=== PATIENT | female | born 1985 | race African-American/Black ===

== ENCOUNTER 2019-05-26 10:32 | Day surgery (SDC) | payer OTHER ==
[2019-05-26 11:32] VITALS: BMI 42.5
[2019-05-26] MEDS ORDERED: hydrALAZINE 20 MG/ML VIAL SLOW IVP PRN (11:55)
--- NOTE | 2019-05-26 11:56 | PDOC.EVN ---
Event Note - Event Note Event Note: H&P dictated Patient seen at 1150
--- NOTE | 2019-05-26 12:20 | HP ---
TIME: The time of evaluation was roughly 1150 hours. LOCATION: Triage bed A. REASON FOR EVALUATION: Suspected contractions in a twin at 31 weeks. This is a patient of Dr. Holden. HISTORY OF PRESENT ILLNESS: This is a 34-year-old , G2, P1, with known dichorionic diamniotic twins, who presents with possible contractions. She denies leakage of fluid or vaginal bleeding and she has not had recent intercourse. There is no other issues up to this point. She states the contractions are on and off and started earlier during the day. REVIEW OF SYSTEMS: Complete review of systems performed and otherwise negative as per HPI. PAST MEDICAL HISTORY: Noncontributory. PAST OBSTETRICAL HISTORY: Significant for a done for failed induction of labor. ALLERGIES: SHE HAS NO KNOWN DRUG ALLERGIES. GYNECOLOGICAL HISTORY: Otherwise negative. PHYSICAL EXAMINATION: VITAL SIGNS: She is afebrile. Blood pressure is 118/74, pulse is variable from the 90s to the low 110s. GENERAL: Clinically, she is in no acute distress and does not appear to be actively laboring. ABDOMEN: Gravid and compatible with twin gestation. : On perineal inspection, no gross evidence of vaginal bleeding or rupture. Cervical exam is deferred. Pending evaluation/laboratory data. INTERVENTIONS ORDERED: We have ordered an FFN per protocol. We have also ordered a cervical length by transvaginal ultrasound. monitor, heart tones x2 are reactive for EGA without pathological decels. No contractions on tocodynamometer, although there is some irritability. ASSESSMENT: This is a G2, P1, at 31 weeks and 5 days, known twin gestation with threatened labor/contractions and os. PLAN: 1. Per protocol, we have ordered an FFN and cervical length. Per true protocol, cervical length was done first, and then followed up by an FFN. As we are at senses capacity, to prevent delay in further assessment, I have ordered both tests together. 2. The patient seen at bedside. 3. I do not suspect true labor at this time, but we will follow protocol per ACOG. Job ID: [id number]
[2019-05-26 12:38] LABS: FFN Internal QC Analyzer PASS (PASS); FFN Internal QC Cassette PASS (PASS); Fetal Fibronectin Negative (Negative)
--- NOTE | 2019-05-26 12:43 | ULT ---
LIMITED OB ULTRASOUND: 05/26/19 HISTORY: 31 week twins, evaluate cervical length. FINDINGS/IMPRESSION: A live intrauterine twin is seen with heart rates of 153 beats per minute (fetus A) a nd 140 beats per minute (fetus B). Fetus A is to the maternal right and fetus B is to the maternal le ft. The cervical length measures 3.8 cm. POS: [facility]
--- NOTE | 2019-05-26 12:54 | PDOC.EVN ---
Event Note - Event Note Event Note: FFN negative Awaiting CX length
--- NOTE | 2019-05-26 13:08 | PDOC.EVN ---
Event Note - Event Note Event Note: CX length 3.0 OK for release
== END 2019-05-26 13:30 | disposition home or self-care (01) ==
LOC: L&D/OP 10:32
PROVIDERS: ATTEND Student in an Organized Health Care Education/Training Program
DX: O47.03 False labor before 37 completed weeks of gestation, third trimester (principal); O30.043 Twin pregnancy, dichorionic/diamniotic, third trimester; Z79.899 Other long term (current) drug therapy; Z3A.31 31 weeks gestation of pregnancy
CPT/HCPCS: 76815; 82731; 99283

== ENCOUNTER 2019-06-23 09:37 | Inpatient (IN) | payer OTHER ==
[2019-06-23 10:05] VITALS: BMI 45.3
[2019-06-23] MEDS ORDERED: hydrALAZINE 20 MG/ML VIAL SLOW IVP PRN ×2 (10:58→13:12)
[2019-06-23 11:15] LABS: #Lymphocytes 1.7 thou/uL (1.20-3.40); #Monocytes 0.6 thou/uL (0.11-0.59); #Neutrophils 4.7 thou/uL (1.40-6.50); %Basophils 0.4 % (0.0-1.0); %Eosinophils 0.6 % (0.0-10.0); %Lymphocytes 24.5 % (21.0-51.0); %Monocytes 7.9 % (0.0-10.0); %Neutrophils 66.6 % (42.0-75.0); Hemoglobin 10.1 g/dL (12.0-16.0); Mean Corpuscular HGB CONC 33.5 g/dL (32.0-36.0); Mean Corpuscular Hemoglobin 25.4 pg (27.0-31.0); Mean Corpuscular Volume 75.6 fL (78.0-98.0); Mean Platelet Volume 8.2 fL (7.4-10.4); Platelet Count 188 thou/uL (130-400); RBC Distribution Width 13.7 % (11.5-14.5); Red Blood Cell (RBC) Count 3.98 mill/uL (4.20-5.40)
[2019-06-23 11:34] LABS: ALT (SGPT) 10 U/L (8-55); AST (SGOT) 18 U/L (5-34); Albumin 3.4 g/dL (3.5-5.0); Alkaline Phosphatase 163 U/L (40-150); Anion Gap 12 mmol/L (10-20); BUN (Urea Nitrogen) 5 mg/dL (7.0-18.7); Bilirubin, Total 0.3 mg/dL (0.2-1.2); Calc. Creatinine Clearance 228 mL/min (70-130); Carbon Dioxide 22 mmol/L (22-29); Chloride 105 mmol/L (98-107); Estimated GFR-MDRD Greater than 90; Globulin 3.2 g/dL (2.4-3.5); Glucose 69 mg/dL (70-105); Protein, Total 6.6 g/dL (6.0-8.3); Sodium 135 mmol/L (136-145)
[2019-06-23 12:02] LABS: Creatinine, Urine 174.92 mg/dL (47-110)
[2019-06-23] MEDS ORDERED: Acetaminophen 500 MG TAB PO PRN (13:12)
[2019-06-23] MEDS ORDERED: Butorphanol Tartrate 1 MG/ML VIAL SLOW IVP PRN (13:12)
[2019-06-23] MEDS ORDERED: Ondansetron PF 4 MG/2 ML Vial IVP PRN (13:12)
[2019-06-23] MEDS ORDERED: Promethazine HCl 25 MG/ML VIAL IM PRN (13:12)
--- NOTE | 2019-06-23 13:20 | PDOC.LDHP ---
Labor and Delivery H&P Chief complaint: other (Preeclampsia workup) HPI: 34 y/o at 35w5d with twins sent from Dr. Holden's office for PIH workup. Denies MATUTE, vision changes, RUQ pain or other concerns. +FM x 2. ROS neg for HEENT, CV, pulm, GI, , neuro, psych, skin, musculoskeletal, or constitutional symptoms other than mentioned above. OB History Details: 1 prior LTCS at term Current complications: di/di twins Past Medical History: None Current medications: pre- vitamins Previous surgical history: low tranverse CS (x1 for failed induction) Allergies/Adverse Reactions: Allergies Allergy/AdvReac Type Severity Reaction Status Date / Time No Known Allergies Allergy Verified 06/23/19 12:11 Social history: none - Physical Exam Vital signs reviewed and normal: yes General: NAD, resting Lungs: nonlabored breathing Abdomen: gravid Extremeties: no edema FHT: category 1 (130s/140s, mod variability, + accels, no decels) [place] contractions every: irregular - Assessment 34 y/o at 35w5d with preeclampsia based on blood pressures and protein creatinine ratio of 1.12. - Plan Plan: admit to L&D -: [place] for lung maturity. Continue to monitor closely. Discussed with Dr. Holden.
[2019-06-23] MEDS: Betamet Acet/Betamet Na Ph 30 MG/5 ML VIAL IM SCH (13:54)
[2019-06-23 16:06] LABS: Hemoglobin 9.8 g/dL (12.0-16.0); Mean Corpuscular Hemoglobin 24.9 pg (27.0-31.0); Mean Corpuscular Volume 75.4 fL (78.0-98.0); Mean Platelet Volume 8.8 fL (7.4-10.4); Platelet Count 208 thou/uL (130-400); RBC Distribution Width 13.7 % (11.5-14.5); Red Blood Cell (RBC) Count 3.92 mill/uL (4.20-5.40); White Blood Cell (WBC) Count 6.3 thou/uL (4.8-10.8)
[2019-06-23 16:46] LABS: HBSAg Index 0.19 S/CO (0-0.99); Hep B Surf Ag Non-Reactive S/CO (NonReactive); Syphilis Antibody Nonreactive (Nonreactive); Syphilis Antibody Index 0.04 S/CO (<1.00 Non-Reactive)
[2019-06-24] MEDS: Betamet Acet/Betamet Na Ph 30 MG/5 ML VIAL IM SCH (13:55)
--- NOTE | 2019-06-24 14:29 | PDOC.LDPN ---
Labor & Delivery Progress Note - Subjective Subjective: comfortable - Objective Vital signs reviewed and normal: yes Abnormal vital signs: occ mild range BP 140s systolic General: NAD Uterine fundus: non tender FHT: category 1 (x2) [place] contractions every: none -: 34yo at 35w6d by LMP with sapphire twins and preeclampsia without severe features Labs normal, no severe range BP or sx. s/p BMZ x 2 Plan RCS tomorrow. DC home until then with PIH warnings. FHR reassuring x 2
== END 2019-06-24 14:00 | disposition home or self-care (01) | DRG 833 ==
LOC: L&D/OP 09:37 → L&D 13:45
PROVIDERS: ADMIT Student in an Organized Health Care Education/Training Program; ATTEND Student in an Organized Health Care Education/Training Program
DX: O14.93 Unspecified pre-eclampsia, third trimester (principal); O30.043 Twin pregnancy, dichorionic/diamniotic, third trimester; Z3A.35 35 weeks gestation of pregnancy; O34.211 Maternal care for low transverse scar from previous cesarean delivery
CPT/HCPCS: 36415; 80053; 82570; 84156; 85025; 86780; 86850; 86900; 86901; 87340; 99285; J0702

== ENCOUNTER 2019-06-25 10:08 | Inpatient (IN) | payer OTHER ==
[2019-06-25] MEDS ORDERED: Lactated Ringer's 1,000 ML IV SCH (11:04)
[2019-06-25] MEDS ORDERED: Promethazine HCl 25 MG/ML VIAL IM PRN ×3 (11:04→14:54)
[2019-06-25] MEDS ORDERED: Ondansetron PF 4 MG/2 ML Vial IVP PRN ×3 (11:04→14:54)
[2019-06-25] MEDS ORDERED: hydrALAZINE 20 MG/ML VIAL SLOW IVP PRN ×2 (11:04→14:54)
[2019-06-25] MEDS ORDERED: Bicitra 30 ML UDCUP PO SCH (11:04)
[2019-06-25 11:16] VITALS: BMI 44.6
[2019-06-25] MEDS ORDERED: CEFAZOLIN 2 GM in Premix Bag 1 BAG IVPB SCH (11:30)
[2019-06-25 11:41] LABS: Hemoglobin 10.6 g/dL (12.0-16.0); Mean Corpuscular HGB CONC 31.8 g/dL (32.0-36.0); Mean Corpuscular Hemoglobin 24.4 pg (27.0-31.0); Mean Corpuscular Volume 76.8 fL (78.0-98.0); Platelet Count 233 thou/uL (130-400); Red Blood Cell (RBC) Count 4.33 mill/uL (4.20-5.40); White Blood Cell (WBC) Count 11.9 thou/uL (4.8-10.8)
[2019-06-25] MEDS ORDERED: MORPHINE 5 MG/10 ML PF VIAL ONE (11:55)
[2019-06-25] MEDS ORDERED: Ondansetron PF 4 MG/2 ML Vial ONE (11:55)
[2019-06-25] MEDS ORDERED: Oxytocin 10 UNITS/ML VIAL ONE (11:55)
--- NOTE | 2019-06-25 12:13 | PDOC.LDHP ---
Labor and Delivery H&P Chief complaint: scheduled section HPI: 34yo A2 at 36w0d by LMP here for RCS due to sapphire TIUP and preeclampsia without severe features. No sx PIH. BP nl on unit today, was admitted 2d ago with mild range BP and PCR of 1.12. s/p BMZ x 2 Current gestational age (weeks): 36 Due date: 07/23/19 Dating criteria: last menstrual period Grav: 4 Para: 1 Current complications: preeclampsia without severe features, di/di twins Abnormal US findings: No Past Medical History: obesity Current medications: pre-janine vitamins, iron Previous surgical history: low tranverse CS Allergies/Adverse Reactions: Allergies Allergy/AdvReac Type Severity Reaction Status Date / Time No Known Allergies Allergy Verified 06/25/19 11:10 Social history: none - Physical Exam Vital signs reviewed and normal: yes General: NAD Heart: RRR Lungs: CTAB Abdomen: gravid Extremeties: no edema FHT: category 1 [place] contractions every: none - OB Labs Blood type: O RH: positive Antibody Screen: negative HIV: negative RPR: negative HEPSAg: negative 1 hour GCT: negative GBS: negative Urine drug screen: negative Rubella: immune - Assessment L&D Assessment: scheduled repeat section - Plan Plan: admit to L&D, to OR for section, informed consent obtained, anesthesia consult for pain management
[2019-06-25 12:17] LABS: HBSAg Index 0.14 S/CO (0-0.99); Hep B Surf Ag Non-Reactive S/CO (NonReactive); Syphilis Antibody Nonreactive (Nonreactive); Syphilis Antibody Index 0.04 S/CO (<1.00 Non-Reactive)
[2019-06-25 12:25] LABS: ALT (SGPT) 12 U/L (8-55); AST (SGOT) 26 U/L (5-34); Albumin 3.9 g/dL (3.5-5.0); Alkaline Phosphatase 184 U/L (40-150); Anion Gap 15 mmol/L (10-20); BUN (Urea Nitrogen) 7 mg/dL (7.0-18.7); Bilirubin, Total 0.3 mg/dL (0.2-1.2); Calc. Creatinine Clearance 222 mL/min (70-130); Calcium 9.2 mg/dL (7.8-10.44); Carbon Dioxide 20 mmol/L (22-29); Chloride 109 mmol/L (98-107); Estimated GFR-MDRD Greater than 90; Globulin 3.3 g/dL (2.4-3.5); Glucose 93 mg/dL (70-105); Potassium 4.2 mmol/L (3.5-5.1); Protein, Total 7.2 g/dL (6.0-8.3); Sodium 140 mmol/L (136-145)
[2019-06-25] MEDS ORDERED: ePHEDrine/0.9% NaCl/PF SYRINGE 50 mg/10 ml ONE (12:37)
[2019-06-25] MEDS ORDERED: Fentanyl 100 MCG/2 ML VIAL ONE (12:41)
[2019-06-25] MEDS ORDERED: PHENYLEPHRINE-NS 100 MCG/ML 10 ML SYRINGE ONE (12:42)
[2019-06-25] MEDS ORDERED: Carboprost 250 MCG/ML AMP ONE (12:53)
--- NOTE | 2019-06-25 13:42 | PDOC.OPDEL ---
OB Operative/Delivery Note Delivery Dr/Surgeon: Adina Assist: Sorin De Santiago PGY3 Pre-Delivery Diagnosis: scheduled section (sterilization, Preeclampsia , twins) Procedure/Post Delivery Dx: repeat low transverse CS (and bilateral salpingectomy) Weeks gestation: 36 Anesthesia: spinal - Findings A Sex: male B Sex: female - Additional Findings/Plan Placenta delivered: spontaneous findings: low transverse hysterotomy without extension, normal uterus, normal tubes, normal ovaries Estimated blood loss: 1000cc Post delivery plan: routine recovery
[2019-06-25] MEDS ORDERED: Naloxone HCl 0.4 mg/ml Vial IV PRN (13:47)
[2019-06-25] MEDS ORDERED: Promethazine HCl 25 MG SUPP PR PRN (13:47)
[2019-06-25] MEDS ORDERED: Naloxone HCl 0.4 mg/ml Vial IVP PRN ×2 (13:47)
[2019-06-25] MEDS ORDERED: Ketorolac Tromethamine 30 MG/ML VIAL IVP PRN (13:47)
[2019-06-25] MEDS ORDERED: Meperidine HCl/PF 25 MG/ML VIAL SLOW IVP PRN (13:47)
[2019-06-25] MEDS ORDERED: Ondansetron HCl/PF 4 MG/2 ML Vial IVP PRN (13:47)
[2019-06-25] MEDS ORDERED: diphenhydrAMINE 50 MG/ML VIAL IVP PRN (13:47)
[2019-06-25] MEDS ORDERED: HYDROmorphone 2 MG/ML VIAL SLOW IVP PRN (13:47)
[2019-06-25] MEDS ORDERED: L&D-Morphine 4 MG/ML VIAL SLOW IVP PRN (13:47)
[2019-06-25] MEDS ORDERED: NS / Oxytocin 40 units/1000ml 1,000 ML ONE (13:51)
[2019-06-25] MEDS ORDERED: Ketorolac Tromethamine 30 MG/ML VIAL ONE (13:56)
[2019-06-25] MEDS ORDERED: Ketorolac Tromethamine 30 MG/ML VIAL IVP SCH (14:00)
[2019-06-25] MEDS ORDERED: Communication Order-Pharmacy FS SCH (14:00)
[2019-06-25] MEDS ORDERED: Meperidine HCl/PF 25 MG/ML VIAL ONE (14:30)
[2019-06-25] MEDS ORDERED: SODIUM CHLORIDE IV SCH (14:45)
[2019-06-25] MEDS ORDERED: OXYTOCIN IV SCH (14:45)
[2019-06-25] MEDS ORDERED: Bisacodyl 10 MG SUPP PR PRN (14:54)
[2019-06-25] MEDS ORDERED: Methylergonovine 0.2 MG/ML VIAL IM PRN (14:54)
[2019-06-25] MEDS ORDERED: Lanolin Ointment 7 GM TUBE TOP PRN (14:54)
[2019-06-25] MEDS ORDERED: Acetaminophen 325 MG TAB PO PRN (14:54)
[2019-06-25] MEDS ORDERED: diphenhydrAMINE 25 MG CAP PO PRN (14:54)
[2019-06-25] MEDS ORDERED: Misoprostol 200 MCG TAB PR PRN (14:54)
[2019-06-25] MEDS ORDERED: Adacel (T-DAP) 0.5 ML SYRINGE IM ONE (14:54)
[2019-06-25] MEDS ORDERED: Zolpidem Tartrate 5 MG TAB PO PRN (14:54)
[2019-06-25] MEDS: Ferrous Sulfate 325 MG TAB PO SCH (17:29)
[2019-06-25] MEDS: Docusate Calcium (SURFAK) 240 MG CAP PO SCH (20:57)
[2019-06-25] MEDS: Lactated Ringer's 1,000 ML IV SCH (22:22)
[2019-06-26] MEDS ORDERED: HYDROcodone/Acetaminophen 5/325 mg Tablet PO PRN (02:00)
[2019-06-26 06:05] LABS: Hemoglobin 7.5 g/dL (12.0-16.0); Mean Corpuscular HGB CONC 31.9 g/dL (32.0-36.0); Mean Corpuscular Hemoglobin 24.5 pg (27.0-31.0); Mean Corpuscular Volume 76.8 fL (78.0-98.0); Mean Platelet Volume 8.4 fL (7.4-10.4); Platelet Count 165 thou/uL (130-400); RBC Distribution Width 14.1 % (11.5-14.5); Red Blood Cell (RBC) Count 3.08 mill/uL (4.20-5.40); White Blood Cell (WBC) Count 11.2 thou/uL (4.8-10.8)
[2019-06-26] MEDS: Prenatal Vitamin 1 TAB PO SCH (10:27)
[2019-06-26] MEDS: Ferrous Sulfate 325 MG TAB PO SCH ×2 (10:28→21:00)
[2019-06-26] MEDS: Docusate Calcium (SURFAK) 240 MG CAP PO SCH ×2 (10:28→19:56)
[2019-06-26] MEDS: Lactated Ringer's 1,000 ML IV SCH ×2 (10:41→12:26)
--- NOTE | 2019-06-26 13:33 | PDOC.PP ---
Post Progress Note Post Day #: 1 PO intake tolerated: yes Flatus: yes Ambulation: yes Vital Signs (12 hours) Temp Pulse Resp BP Pulse Ox 06/26/19 12:28 98.2 F 77 12 119/72 100 06/26/19 07:58 97.9 F 77 14 120/81 99 06/26/19 02:30 97.6 F 97 20 135/84 Weight Weight 294 lb - Physical Examination General: NAD Respiratory: non-labored breathing Abdominal: no distention, appropriately TTP Skin: CS incision dry & intact Neurological: no gross focal deficits Psychiatric: normal affect Result Diagrams: 06/26/19 05:17 06/25/19 11:18 Additional Labs: Post Labs Blood Type O POSITIVE 06/25/19 11:18 Hep Bs Antigen Non-Reactive S/CO (NonReactive) 06/25/19 11:18 - Assessment/Plan POD1 s/p RCS at bilateral salpingectomy VSSAF Hgb 10.6-->ebl 1L-->7.5, no s/sx anemia, acute on chronic iron def anemia, cont iron supp Met appropriate milestones. Rh pos RImm , infants in NICU Cont postop care.
--- NOTE | 2019-06-26 13:43 | OP ---
DATE OF PROCEDURE: 06/25/2019 I was present and scrubbed to assist the repeat for Barb Kiran with Dr. Valeria Holden. Please see her note for full details. Job ID: [id number]
[2019-06-26] MEDS: Simethicone Chewable 80 MG TAB PO PRN (19:56)
[2019-06-26] MEDS: HYDROcodone/Acetaminophen 5/325 mg Tablet PO PRN (19:57)
--- NOTE | 2019-06-26 21:22 | OP ---
DATE OF PROCEDURE: 06/25/2019 PREOPERATIVE DIAGNOSES: 1. Intrauterine at 36 weeks 0 days. 2. Dichorionic-diamniotic twin intrauterine . 3. Preeclampsia without severe features. 4. Prior section x1, declines trial of labor. 5. Desires sterilization. 6. Family history of breast cancer. POSTOPERATIVE DIAGNOSES: 1. Intrauterine at 36 weeks 0 days. 2. Dichorionic-diamniotic twin intrauterine . 3. Preeclampsia without severe features. 4. Prior section x1, declines trial of labor. 5. Desires sterilization. 6. Family history of breast cancer. PROCEDURE PERFORMED: Repeat low transverse section via Pfannenstiel skin incision and bilateral salpingectomy. ANESTHESIA: Spinal. BUS DRIVER SURGEON: Velia De Santiago MD and Dr. Rowell, PGY-3. ESTIMATED BLOOD LOSS: 1 L. COMPLICATIONS: None. DRAINS: Davila catheter. PATHOLOGY: Placenta. FINDINGS: Baby A male, clear amniotic fluid, cephalic presentation. Apgars of 7 and 8, weighing 5 pounds 8 ounces. Baby B female, cephalic presentation, clear amniotic fluid, weighing 4 pounds 8 ounces. Apgars of 6, 7, and 9. Hysterotomy without extension. Normal uterus, ovaries, and tubes bilaterally. Excellent hemostasis. DESCRIPTION OF PROCEDURE: The patient was taken to operating room, where spinal anesthesia was obtained without difficulty. The patient was prepped and draped in a sterile fashion in the dorsal supine position with a leftward tilt. After ensuring adequacy of anesthesia, a Pfannenstiel skin incision was made and carried down to the underlying subcutaneous tissue with the Bovie. The fascia was nicked in the midline with the Bovie and carried laterally with the Alamo scissors. The superior aspect of the fascia was tented with two Bar's and dissected off the rectus with the [place] scissors. The inferior aspect of the fascia was tented with two Bar's and dissected off the rectus down to the pubic symphysis. The rectus was bluntly divided in the midline. The peritoneum was bluntly entered into and manually retracted. The Holden O retractor was placed, and the lower uterine segment was incised in a transverse fashion and extended with a Edward maneuver. The baby A's head was brought to the hysterotomy, AROM performed, and baby A was delivered with fundal pressure. The baby's cord was clamped, and baby handed to awaiting Neonatology team. Baby B was then grasped and AROM performed. The baby B was delivered with fundal pressure also in cephalic presentation, and the cord was clamped and handed to awaiting Neonatology team. Cord blood was obtained of both placentas and the placenta was allowed to spontaneously deliver. The uterus was exteriorized, cleared of all clots and debris, and the hysterotomy was repaired with a #1 Monocryl in a running locking fashion with excellent hemostasis. A moist lap sponge was placed over the hysterotomy. The right fallopian tube was grasped with a Bethel clamp and windows were made around the spiral arteries in the mesosalpinx. The arteries were then clamped as well as the medial portion of the fallopian tube at the uterine cornua. The fallopian tube was incised with the Metzenbaum's and handed for pathology. These spiral arteries were then ligated with 0 chromic and hemostasis was noted to be excellent. Same procedure was performed on the contralateral side. The hysterotomy was then examined, noted to be hemostatic. The uterus was placed back into the abdomen. The fallopian tube sites were noted to be hemostatic as well. Irrigation was performed of the pelvis. Holden O retractor was removed. The rectus muscles were examined and noted to be hemostatic. The fascia was reapproximated with 0 PDS x2 sutures with excellent reapproximation. The subcutaneous tissue was irrigated and cauterized of any bleeders and reapproximated with a 2-0 plain gut in a running fashion. The skin was closed with a 4-0 Monocryl in a subcuticular fashion. Dermabond was applied as well as a pressure dressing. The patient tolerated the procedure well. Sponge, lap, and needle counts were correct x2. The patient was taken to recovery room in stable condition. The patient received Ancef 2 g prior to the procedure. Job ID: [id number]
[2019-06-26] MEDS: Ibuprofen 800 MG TAB PO SCH (21:41)
[2019-06-27] MEDS: HYDROcodone/Acetaminophen 5/325 mg Tablet PO PRN ×2 (00:49→06:35)
[2019-06-27] MEDS: Lactated Ringer's 1,000 ML IV SCH ×3 (01:48→11:21)
[2019-06-27] MEDS: Ibuprofen 800 MG TAB PO SCH ×4 (06:26→21:51)
[2019-06-27] MEDS ORDERED: Milk Of Magnesia 30 ML UDCUP PO PRN (07:30)
--- NOTE | 2019-06-27 08:37 | PRG ---
DATE OF SERVICE: 06/27/2019 SUBJECTIVE: The patient is a 34-year-old female, postop day 2 status post a repeat for a twin gestation. The patient reports this morning that she is having trouble with pain control given the medication she is on currently. Reports that she has been taking it regularly. She also reports that she has been having constipation, has not had a bowel movement since admission and is concerned for that. She does ambulate to and from the NICU, and denies any concerns or complaints with ambulation. She is tolerating p.o., voiding on her own, and having decreased lochia. OBJECTIVE: VITAL SIGNS: This morning, blood pressure is 148/91, temperature is 98.0, pulse is 97, respiratory rate is 16. GENERAL: She appears to be in no acute distress. She is alert, oriented, cooperative, and pleasant to interact with. HEENT: Head is normocephalic and atraumatic. Fundus is firm. Incision is clean, dry, and intact. EXTREMITIES: Nontender bilaterally with minimal edema. LABORATORY DATA: Her post delivery hemoglobin is 7.5, hematocrit 23.6, and platelets of 165,000, down from 10.6, 33.3 and 233,000. ASSESSMENT AND PLAN: 1. The patient is a 34-year-old female, postoperative day 2, status post a repeat section for a twin gestation. The patient has been having difficulty with pain control. I have increased her medications from hydrocodone 5 one to two tablets to 7.5 one to two tablets p.r.n. as needed. I have also added milk of magnesia scheduled to her regimen with instructions to hold it if she has loose stools. The patient has been encouraged to ambulate. She has been without symptoms at this time. 2. Acute blood loss anemia from her section. We will observe for symptoms. At this time, we will treat only with iron supplementation. We will anticipate discharge in the next day or two. Job ID: [id number]
[2019-06-27] MEDS: Prenatal Vitamin 1 TAB PO SCH (09:47)
[2019-06-27] MEDS: Simethicone Chewable 80 MG TAB PO PRN ×2 (09:48→18:31)
[2019-06-27] MEDS: Docusate Calcium (SURFAK) 240 MG CAP PO SCH ×2 (09:48→21:51)
[2019-06-27] MEDS: Ferrous Sulfate 325 MG TAB PO SCH ×2 (09:48→18:31)
[2019-06-27] MEDS: HYDROcodone/Acetaminophen 7.5/325 mg Tablet PO PRN ×3 (11:18→23:59)
[2019-06-28] MEDS: Lactated Ringer's 1,000 ML IV SCH ×4 (02:35→18:44)
[2019-06-28] MEDS: HYDROcodone/Acetaminophen 7.5/325 mg Tablet PO PRN ×2 (06:06→14:35)
[2019-06-28] MEDS: Ibuprofen 800 MG TAB PO SCH ×3 (06:07→21:37)
--- NOTE | 2019-06-28 07:16 | PRG ---
DATE OF SERVICE: 06/28/2019 SUBJECTIVE: Ms. Kiran is postop day #3, status post for preeclampsia with twins. Blood pressure has been noted to be elevated to 158/87 maximally. She denies headache, blurred vision. PHYSICAL EXAMINATION: GENERAL: Black female, resting comfortably. ABDOMEN: Soft and nontender. Incision intact. EXTREMITIES: DTRs 1+. IMPRESSION: Preeclampsia, status post section for twins with persistently elevated blood pressures . PLAN: Initiate Procardia XL 30 mg p.o. daily. We will notify Dr. Holden of patient's status remaining in hospital. Job ID: [id number]
[2019-06-28] MEDS: Ferrous Sulfate 325 MG TAB PO SCH ×2 (08:51→18:41)
[2019-06-28] MEDS: Prenatal Vitamin 1 TAB PO SCH (08:51)
[2019-06-28] MEDS: Docusate Calcium (SURFAK) 240 MG CAP PO SCH ×2 (08:52→21:37)
[2019-06-28] MEDS ORDERED: NIFEdipine XL 30 MG TAB PO SCH (09:00)
[2019-06-28] MEDS: Simethicone Chewable 80 MG TAB PO PRN (13:05)
[2019-06-29] MEDS: HYDROcodone/Acetaminophen 7.5/325 mg Tablet PO PRN ×3 (00:05→14:56)
[2019-06-29] MEDS: Lactated Ringer's 1,000 ML IV SCH ×3 (04:55→17:49)
[2019-06-29] MEDS: Ibuprofen 800 MG TAB PO SCH ×3 (05:48→21:28)
--- NOTE | 2019-06-29 07:57 | PDOC.PP ---
Post Progress Note Post Day #: 4 Subjective: No sx PIH PO intake tolerated: yes Flatus: yes Ambulation: yes Vital Signs (12 hours) Temp Pulse Resp BP Pulse Ox 06/29/19 05:52 97.9 F 73 20 162/83 H 06/28/19 23:57 98.8 F 80 20 151/87 H 06/28/19 20:45 98.1 F 87 18 147/79 H 100 Weight Weight 294 lb - Physical Examination General: NAD Respiratory: non-labored breathing Abdominal: no distention, appropriately TTP Extremities: negative homans (B) Skin: CS incision dry & intact Neurological: no gross focal deficits Psychiatric: normal affect Result Diagrams: 06/26/19 05:17 06/25/19 11:18 Additional Labs: Post Labs Blood Type O POSITIVE 06/25/19 11:18 Hep Bs Antigen Non-Reactive S/CO (NonReactive) 06/25/19 11:18 - Assessment/Plan POD4 s/p RCSx for twins, preeclampsia at 36w
[2019-06-29] MEDS: Ferrous Sulfate 325 MG TAB PO SCH ×3 (09:43→21:28)
[2019-06-29] MEDS: Prenatal Vitamin 1 TAB PO SCH (09:44)
[2019-06-29] MEDS: NIFEdipine XL 30 MG TAB PO SCH (09:44)
[2019-06-29] MEDS: Docusate Calcium (SURFAK) 240 MG CAP PO SCH ×2 (09:45→21:28)
[2019-06-29] MEDS: Simethicone Chewable 80 MG TAB PO PRN (21:33)
[2019-06-30] MEDS: Lactated Ringer's 1,000 ML IV SCH ×2 (06:12→12:46)
[2019-06-30] MEDS: Ibuprofen 800 MG TAB PO SCH ×2 (06:15→15:21)
[2019-06-30] MEDS: Simethicone Chewable 80 MG TAB PO PRN (06:19)
--- NOTE | 2019-06-30 08:11 | PDOC.PP ---
Post Progress Note Post Day #: 5 PO intake tolerated: yes Flatus: yes Ambulation: yes Vital Signs (12 hours) Temp Pulse Resp BP BP 06/30/19 05:45 98.2 F 85 18 136/85 06/30/19 00:17 98.3 F 73 18 136/79 Weight Weight 294 lb - Physical Examination General: NAD Respiratory: non-labored breathing Abdominal: no distention, appropriately TTP Fundus firm & at: umb-2 Extremities: negative homans (B) Skin: CS incision dry & intact Psychiatric: normal affect Result Diagrams: 06/26/19 05:17 06/25/19 11:18 Additional Labs: Post Labs Blood Type O POSITIVE 06/25/19 11:18 Hep Bs Antigen Non-Reactive S/CO (NonReactive) 06/25/19 11:18 - Assessment/Plan POD5 s/p RCS twins preeclampsia at 36w VSSAF No sx PIH, BP improved on procardia xl 60 qd. will cont this. Acute blood loss anemia, cont iron on DC, no sx anemia Met all milestones Breastpumping DC home FU 2w
[2019-06-30] MEDS: NIFEdipine XL 30 MG TAB PO SCH (09:16)
[2019-06-30] MEDS: Prenatal Vitamin 1 TAB PO SCH (09:16)
[2019-06-30] MEDS: Ferrous Sulfate 325 MG TAB PO SCH ×2 (09:17→18:52)
[2019-06-30] MEDS: Docusate Calcium (SURFAK) 240 MG CAP PO SCH (09:17)
[2019-06-30 17:14] VITALS: BP 147/81; TEMP 98.5
== END 2019-06-30 18:59 | disposition home or self-care (01) | DRG 784 ==
LOC: L&D 10:08 → 3SW 16:35
PROVIDERS: ADMIT Student in an Organized Health Care Education/Training Program; ATTEND Student in an Organized Health Care Education/Training Program
PROC: 10D00Z1 Extraction of Products of Conception, Low, Open Approach (ICD-10-PCS; principal; 2019-06-25)
PROC: 0UT70ZZ Resection of Bilateral Fallopian Tubes, Open Approach (ICD-10-PCS; 2019-06-25)
DX: O34.211 Maternal care for low transverse scar from previous cesarean delivery (principal); D62 Acute posthemorrhagic anemia; O30.043 Twin pregnancy, dichorionic/diamniotic, third trimester; Z3A.36 36 weeks gestation of pregnancy; Z37.2 Twins, both liveborn; O99.214 Obesity complicating childbirth; E66.9 Obesity, unspecified; O14.94 Unspecified pre-eclampsia, complicating childbirth; O99.02 Anemia complicating childbirth; Z30.2 Encounter for sterilization
CPT/HCPCS: 36415; 51702; 80053; 85027; 86780; 86850; 86900; 86901; 87340; 88302; 88307; J0690; J1885; J2175; J2274; J2405; J2590; J3010; J3490